=== PATIENT | male | born 1985 | race Caucasian/White ===

== ENCOUNTER 2022-12-30 09:59 | Inpatient (IN) ==
[2022-12-30] MEDS ORDERED: Iodixanol (CONTRAST) 320 MG/ML 100 ML SDV IV ONE (11:01)
[2022-12-30] MEDS ORDERED: Al Hydrox/Mg Hydrox/Simet LIQ 30 ML UDC PO PRN (12:39)
[2022-12-30] MEDS ORDERED: Dexmedetomidine HCL 180 MCG FILM SL ONE (13:00)
[2022-12-30 13:41] LABS: ABS Basophils 0.1 10^3/uL (0.0-0.1); ABS Eosinophils 0.1 10^3/uL (0.0-0.5); ABS Lymphocytes 1.7 10^3/uL (1.0-4.8); ABS Monocytes 0.9 10^3/uL (0.0-1.1); ABS Neutrophils 9.1 10^3/uL (1.5-7.6); ABS Nucleated RBC 0.01 10^3/ul; Hematocrit 41.4 % (38-53); Hemoglobin 14.4 g/dL (13.2-16.3); Lymphocyte % 14.1 %; Mean Corpuscular Hemoglobin 31.8 pg (27-33); Mean Corpuscular Hgb Conc 34.8 g/dL (31-36); Mean Corpuscular Volume 91.2 fL (80-97); Mean Platelet Volume 7.2 fL (7.5-11.2); Nucleated Red Blood Cells % 0.1 /100 WBC (0.0-0.4); Platelet Count 303 10^3/uL (150-450); Red Blood Count 4.54 10^6/uL (4.06-5.63)
[2022-12-30 13:49] LABS: INR 1.17 (0.88-1.18)
[2022-12-30 14:02] LABS: ALT 63 U/L (7-52); AST 50 U/L (13-39); Albumin 4.7 g/dL (3.2-5.2); Alkaline Phosphatase 65 U/L (35-149); Anion Gap 12 mmol/L (2-16); Blood Urea Nitrogen 18 mg/dL (6-24); CO2 Carbon Dioxide 27 mmol/L (22-32); Calcium 9.3 mg/dL (8.6-10.3); Chloride 97 mmol/L (101-111); Creatine Kinase 985 U/L (10-223); Creatinine, Serum 1.19 mg/dL (0.67-1.17); Globulin 2.3 g/dL (2-4); Glucose 94 mg/dL (70-100); Lipase < 10 U/L (11.0-82.0); Sodium 136 mmol/L (135-145); eGFR CKD-EPI 81.7 (>60)
[2022-12-30 14:20] LABS: Alcohol, S < 13 mg/dL (<13)
[2022-12-30 14:34] LABS: Urine Appearance Clear; Urine Bilirubin Negative (Negative); Urine Blood Negative (Negative); Urine Color Straw; Urine Glucose Negative (Negative); Urine Ketones 1+ (Negative); Urine Nitrite Negative (Negative); Urine Protein Negative (Negative); Urine Specific Gravity 1.035 (1.002-1.030); Urine Urobilinogen Negative (Negative)
[2022-12-30 15:17] LABS: Urine Benzodiazepine Screen None Detected (None Detect); Urine Cannabinoids Screen None Detected (None Detect); Urine Opiates Screen None Detected (None Detect)
[2022-12-30] MEDS: Chlorhexidine MOUTHWASH 0.12% 15 ML UDC SWISH SPIT SCH (22:42)
[2022-12-31 07:56] LABS: HDL Cholesterol 43.5 mg/dL
[2022-12-31] MEDS: Nicotine PATCH 21 MG/24 HR PATCH TRANSDERM SCH (08:19)
[2022-12-31] MEDS: Chlorhexidine MOUTHWASH 0.12% 15 ML UDC SWISH SPIT SCH ×2 (08:23→22:09)
[2022-12-31] MEDS: OLANZapine 10 mg TAB*ODT PO SCH ×2 (09:49→22:09)
[2022-12-31] MEDS: Nicotine GUM 4MG FRUIT FLAVOR PO PRN (14:51)
[2023-01-01] MEDS: OLANZapine 10 mg TAB*ODT PO SCH ×2 (09:07→20:51)
[2023-01-01] MEDS: Nicotine PATCH 21 MG/24 HR PATCH TRANSDERM SCH (09:09)
[2023-01-01] MEDS: Chlorhexidine MOUTHWASH 0.12% 15 ML UDC SWISH SPIT SCH ×2 (09:12→21:10)
[2023-01-01] MEDS: Nicotine GUM 4MG FRUIT FLAVOR PO PRN ×2 (10:58→15:11)
[2023-01-02] MEDS: Nicotine PATCH 21 MG/24 HR PATCH TRANSDERM SCH (07:28)
[2023-01-02] MEDS: OLANZapine 10 mg TAB*ODT PO SCH ×2 (07:28→21:46)
[2023-01-02] MEDS: Chlorhexidine MOUTHWASH 0.12% 15 ML UDC SWISH SPIT SCH ×2 (07:30→21:51)
[2023-01-02] MEDS: Nicotine GUM 4MG FRUIT FLAVOR PO PRN ×3 (07:36→15:58)
[2023-01-03] MEDS: OLANZapine 10 mg TAB*ODT PO SCH (07:24)
[2023-01-03] MEDS: Nicotine PATCH 21 MG/24 HR PATCH TRANSDERM SCH (07:24)
[2023-01-03] MEDS: Nicotine GUM 4MG FRUIT FLAVOR PO PRN (07:24)
[2023-01-03] MEDS: Chlorhexidine MOUTHWASH 0.12% 15 ML UDC SWISH SPIT SCH (07:30)
[2023-01-03 11:19] VITALS: BP 145/85
== END 2023-01-03 12:23 | disposition home or self-care (01) | DRG 750 ==
LOC: ED 09:59 → EDHOLD 12:39 → BSU 14:56
PROVIDERS: ADMIT Psychiatry & Neurology Psychiatry; ATTEND Psychiatry & Neurology Psychiatry

== ENCOUNTER 2023-03-02 20:44 | Inpatient (IN) ==
[2023-03-02 22:02] LABS: ABS Basophils 0.1 10^3/uL (0.0-0.1); ABS Eosinophils 0.3 10^3/uL (0.0-0.5); ABS Lymphocytes 3.6 10^3/uL (1.0-4.8); ABS Monocytes 0.7 10^3/uL (0.0-1.1); ABS Neutrophils 2.8 10^3/uL (1.5-7.6); ABS Nucleated RBC 0.02 10^3/ul; Eosinophil % 3.9 %; Hematocrit 40.6 % (38-53); Lymphocyte % 48.3 %; Mean Corpuscular Hgb Conc 34.5 g/dL (31-36); Mean Platelet Volume 7.9 fL (7.5-11.2); Nucleated Red Blood Cells % 0.3 /100 WBC (0.0-0.4); Platelet Count 281 10^3/uL (150-450); Red Blood Count 4.36 10^6/uL (4.06-5.63); Red Cell Distribution Width 14.1 % (12-17); White Blood Count 7.4 10^3/uL (3.6-10.2)
[2023-03-02 22:16] LABS: Acetaminophen < 15 mcg/mL; Alcohol, S < 13 mg/dL (<13); Salicylate < 2.50 mg/dL (<30)
[2023-03-02 22:17] LABS: ALT 12 U/L (7-52); AST 15 U/L (13-39); Albumin 4.7 g/dL (3.2-5.2); Albumin/Globulin Ratio 2.2 (1-3); Alkaline Phosphatase 54 U/L (35-149); Anion Gap 4 mmol/L (2-16); Blood Urea Nitrogen 7 mg/dL (6-24); CO2 Carbon Dioxide 33 mmol/L (22-32); Calcium 9.7 mg/dL (8.6-10.3); Chloride 99 mmol/L (101-111); Creatinine, Serum 0.99 mg/dL (0.67-1.17); Globulin 2.1 g/dL (2-4); Glucose 94 mg/dL (70-100); Potassium 3.4 mmol/L (3.5-5.0); Sodium 136 mmol/L (135-145); Total Protein 6.8 g/dL (6.4-8.9); eGFR CKD-EPI 101.9 (>60)
[2023-03-02 23:20] LABS: TSH Ultra Thyroid Stim Horm 0.27 mcIU/mL (0.34-5.60)
[2023-03-03 05:36] LABS: Urine Benzodiazepine Screen None Detected (None Detect); Urine Cannabinoids Screen Presumptive Positive (None Detect); Urine Opiates Screen None Detected (None Detect)
[2023-03-03] MEDS ORDERED: Al Hydrox/Mg Hydrox/Simet LIQ 30 ML UDC PO PRN (08:54)
[2023-03-03] MEDS: OLANZapine 10 mg TAB*ODT PO SCH ×2 (12:05→21:50)
[2023-03-03] MEDS: Nicotine PATCH 21 MG/24 HR PATCH TRANSDERM SCH (12:08)
[2023-03-04] MEDS: Nicotine PATCH 21 MG/24 HR PATCH TRANSDERM SCH (08:44)
[2023-03-04] MEDS: OLANZapine 10 mg TAB*ODT PO SCH ×2 (08:45→20:29)
[2023-03-04] MEDS: Nicotine GUM 4MG FRUIT FLAVOR PO PRN ×3 (10:50→20:44)
[2023-03-04] MEDS: Buprenorp/Nalox 8-2 MG FILM SL SCH (18:18)
[2023-03-04] MEDS: Buprenorp/Nalox 2-0.5 mg SL TB SL PRN (20:36)
[2023-03-05] MEDS: Nicotine GUM 4MG FRUIT FLAVOR PO PRN ×5 (00:10→17:33)
[2023-03-05] MEDS: Buprenorp/Nalox 2-0.5 mg SL TB SL PRN ×4 (00:38→17:33)
[2023-03-05] MEDS: OLANZapine 10 mg TAB*ODT PO SCH ×2 (07:38→20:10)
[2023-03-05] MEDS: Buprenorp/Nalox 8-2 MG FILM SL SCH (07:38)
[2023-03-05] MEDS: Nicotine PATCH 21 MG/24 HR PATCH TRANSDERM SCH (07:38)
[2023-03-05 08:30] LABS: HDL Cholesterol 45.8 mg/dL
[2023-03-05 08:55] LABS: Free T3 3.3 pg/mL (2.5-3.9)
[2023-03-05 08:57] LABS: Free T4 0.98 ng/dL (0.61-1.12)
[2023-03-06] MEDS: Nicotine PATCH 21 MG/24 HR PATCH TRANSDERM SCH (09:20)
[2023-03-06] MEDS: Buprenorp/Nalox 8-2 MG FILM SL SCH (09:20)
[2023-03-06] MEDS: OLANZapine 10 mg TAB*ODT PO SCH ×2 (09:21→19:26)
[2023-03-06] MEDS: Nicotine GUM 4MG FRUIT FLAVOR PO PRN ×5 (09:21→22:50)
[2023-03-06] MEDS: Buprenorp/Nalox 2-0.5 mg SL TB SL PRN ×3 (12:40→20:49)
[2023-03-07] MEDS: Buprenorp/Nalox 2-0.5 mg SL TB SL PRN ×2 (01:43→05:08)
[2023-03-07] MEDS: Nicotine GUM 4MG FRUIT FLAVOR PO PRN ×2 (05:30→10:49)
[2023-03-07] MEDS: OLANZapine 10 mg TAB*ODT PO SCH (07:40)
[2023-03-07] MEDS: Buprenorp/Nalox 8-2 MG FILM SL SCH (07:40)
[2023-03-07 09:57] VITALS: BP 114/69
[2023-03-07] MEDS ORDERED: Buprenorp/Nalox 2-0.5 mg SL TB SL PRN (10:10)
[2023-03-07] MEDS: Nicotine PATCH 21 MG/24 HR PATCH TRANSDERM SCH (11:49)
[2023-03-07] MEDS ORDERED: Buprenorp/Nalox 8-2 MG FILM SL SCH (21:00)
== END 2023-03-07 13:20 | DRG 750 ==
LOC: ED 20:44 → BSU 03-03 08:54 → EDHOLD 03-03 08:54 → BSU 03-03 11:05
PROVIDERS: ADMIT Psychiatry & Neurology Psychiatry; ATTEND Psychiatry & Neurology Psychiatry